=== PATIENT | female | born 1940 | race Caucasian/White ===

== ENCOUNTER 2024-08-23 14:44 | Inpatient (IN) | payer MEDICARE, OTHER ==
[~2024-08-23] VITALS: Ht 157.5 cm; Wt 59.9 kg
[2024-08-23] MEDS ORDERED: GABA-529 PO (16:03)
[2024-08-23] MEDS ORDERED: MIRT-92 PO (16:03)
[2024-08-23] MEDS ORDERED: LEVO125T95 PO (16:03)
[2024-08-23] MEDS ORDERED: PANT40TA54 PO (16:03)
[2024-08-23] MEDS ORDERED: LOSA-381 PO (16:03)
[2024-08-23 17:03] LABS: BASOPHILS % (AUTO) 0.1 % (0.0-2.0); EOSINOPHILS % (AUTO) 3.6 % (1.0-6.0); HEMATOCRIT 31.9 % (36-46); HEMOGLOBIN 10.3 g/dL (12.0-16.0); LYMPHOCYTES # (AUTO) 1.1 K/uL (1.0-4.8); LYMPHOCYTES % (AUTO) 21.1 % (22.0-44.0); MEAN CORPUSCULAR HEMOGLOBIN 27.7 pg (26.0-34.0); MEAN CORPUSCULAR HGB CONC 32.3 G/dL (31.0-37.0); MEAN CORPUSCULAR VOLUME 86 fL (80-100); MONOCYTES # (AUTO) 0.5 K/uL (0.1-1.0); MONOCYTES % (AUTO) 9.4 % (2.0-9.0); NEUTROPHILS # (AUTO) 3.5 K/uL (1.8-7.7); NEUTROPHILS % (AUTO) 65.8 % (40.0-70.0); PLATELET COUNT (AUTO) 352 K/uL (150-450); RED BLOOD CELL COUNT(AUTO) 3.72 MIL/uL (4.00-5.20); RED CELL DISTRIBUTION WIDTH 14.2 % (11.5-14.5); WHITE BLOOD COUNT (AUTO) 5.3 K/uL (4.5-11.0)
[2024-08-23 17:13] LABS: ANION GAP 8 mmol/L (8-16); CALCIUM, TOTAL 9.2 mg/dL (8.8-10.5); CARBON DIOXIDE 28 mmol/L (22-29); CHLORIDE 106 mmol/L (98-107); CREATININE 0.89 mg/dL (0.60-1.30); GLOMERULAR FILTR. RATE CALC > 60 mL/min (>60); GLUCOSE,RANDOM 105 mg/dL (70-110); POTASSIUM 4.6 mmol/L (3.5-5.1); SODIUM SERUM 142 mmol/L (136-145); UREA NITROGEN, BLOOD 27 mg/dL (7-18)
[2024-08-23 17:24] LABS: ALCOHOL, BLOOD (SERUM) < 3 mg/dL (0-10)
[2024-08-23] MEDS ORDERED: BACITRACIN 0.9 GM PACKET OINTMENT TP ONE (17:44)
[2024-08-23 17:52] LABS: APPEARANCE,URINE CLEAR (CLEAR); BILIRUBIN,URINE NEGATIVE (NEGATIVE); COLOR,URINE LIGHT YELLOW (YELLOW); GLUCOSE, URINE (UA) NEGATIVE (NEGATIVE); KETONES,URINE NEGATIVE (NEGATIVE); LEUKOCYTE ESTERASE ,URINE LARGE (NEGATIVE); NITRATE,URINE NEGATIVE (NEGATIVE); OCCULT BLOOD,URINE TRACE (NEGATIVE); PH,URINE 6.5 (5.0-8.0); PH,URINE DRUG SCREEN 6.5 (5.0-8.0); PROTEIN,URINE NEGATIVE (NEGATIVE); SPECIFIC GRAVITIY, URINE 1.018 (1.003-1.030); UROBILINOGEN,URINE <=1.0 mg/dL (<=1.0)
[2024-08-23] MEDS: BACITRACIN 0.9 GM PACKET OINTMENT TP ONE (17:54)
[2024-08-23 17:59] LABS: AMPHET/METH SCREEN,URINE NEGATIVE (NEGATIVE); BARBITURATE SCREEN, URINE NEGATIVE (NEGATIVE); BENZODIAZEPINES SCREEN,URINE NEGATIVE (NEGATIVE); CANNABINOID SCREEN,URINE NEGATIVE (NEGATIVE); COCAINE SCREEN,URINE NEGATIVE (NEGATIVE); METHADONE SCREEN, URINE NEGATIVE (NEGATIVE); OPIATE SCREEN,URINE NEGATIVE (NEGATIVE); PHENCYCLIDINE SCREEN,URINE NEGATIVE (NEGATIVE)
[2024-08-23 18:02] LABS: ALCOHOL, URINE DRUG SCREEN NEGATIVE (NEGATIVE)
[2024-08-23 18:03] LABS: BACTERIA,URINE Moderate /HPF (None Seen); RBC,URINE 0-2 /HPF (0-2); SQUAMOUS EPITHELIAL CELL,UR Rare /LPF (None Seen)
[2024-08-23 19:00] LABS: COVID AG,FIA SOURCE NASAL SWAB
[2024-08-23 19:19] LABS: SARS-COV2 (COVID) ANTIGEN,FIA Negative (Negative)
[2024-08-23] MEDS: LORazepam 2 MG/ML VIAL IM ONE ×2 (19:33→23:05)
[2024-08-23] MEDS: HALOPERIDOL LACTATE 5 MG/ML VIAL IM ONE (19:33)
[2024-08-23] MEDS: MIRTAZAPINE 30 MG TABLET PO ONE (21:29)
[2024-08-23] MEDS: ZIPRASIDONE MESYLATE 20 MG/VIAL IM ONE (21:29)
[2024-08-23] MEDS: DiphenhydrAMINE HCL 25 MG CAPSULE PO ONE (21:51)
[2024-08-23] MEDS: OLANZapine 10 MG TABLET PO ONE (21:51)
[2024-08-23] MEDS: LORazepam 1 MG TABLET PO ONE (21:51)
[2024-08-24] MEDS ORDERED: ZOLPIDEM TARTRATE 10 MG TABLET PO PRN (03:00)
[2024-08-24] MEDS ORDERED: CEPHALEXIN MONOHYDRATE 500 MG CAPSULE PO ONE (09:00)
[2024-08-24] MEDS: CefTRIAXone 1 GM/DEXTROSE 50 ML IV ONE (10:23)
[2024-08-24] MEDS: SODIUM CHLORIDE 0.9% 1,000 ML IV ONE ×2 (10:24→15:08)
[2024-08-24] MEDS ORDERED: BISACODYL 10 MG RECTAL RECTAL SUPPOSITORY PR PRN (14:45)
[2024-08-24] MEDS ORDERED: MAGNESIUM HYDROXIDE SUSPENSION 30 ML UDCUP PO PRN (14:45)
[2024-08-24] MEDS: HEPARIN SODIUM,PORCINE 5,000 UNITS/ML VIAL SQ SCH (15:34)
[2024-08-24 15:51] VITALS: BP 138/84; PULSE 89; RESP 17; TEMP 97.7; O2SAT 98
[2024-08-24] MEDS: ACETAMINOPHEN 325 MG TABLET PO PRN (16:03)
[2024-08-24] MEDS: LORazepam 2 MG TABLET PO PRN (16:03)
[2024-08-24] MEDS: HALOPERIDOL 5 MG TABLET PO PRN (17:35)
[2024-08-24] MEDS: ZOLPIDEM TARTRATE 5 MG TABLET PO PRN (20:07)
[2024-08-24] MEDS: MIRTAZAPINE 15 MG TABLET PO SCH (20:07)
[2024-08-24] MEDS: DOCUSATE SODIUM 100 MG CAPSULE PO SCH (20:08)
[2024-08-25 03:38] VITALS: BP 124/77; PULSE 111; RESP 18; TEMP 98.5; O2SAT 95
[2024-08-25 06:31] LABS: BASOPHILS % (AUTO) 0.1 % (0.0-2.0); EOSINOPHILS % (AUTO) 2.4 % (1.0-6.0); HEMATOCRIT 33.4 % (36-46); LYMPHOCYTES # (AUTO) 0.9 K/uL (1.0-4.8); MEAN CORPUSCULAR HEMOGLOBIN 28.2 pg (26.0-34.0); MEAN CORPUSCULAR HGB CONC 32.9 G/dL (31.0-37.0); MEAN CORPUSCULAR VOLUME 86 fL (80-100); MONOCYTES # (AUTO) 0.5 K/uL (0.1-1.0); NEUTROPHILS % (AUTO) 72.5 % (40.0-70.0); PLATELET COUNT (AUTO) 388 K/uL (150-450); RED BLOOD CELL COUNT(AUTO) 3.89 MIL/uL (4.00-5.20); RED CELL DISTRIBUTION WIDTH 14.2 % (11.5-14.5); WHITE BLOOD COUNT (AUTO) 5.5 K/uL (4.5-11.0)
[2024-08-25 06:44] LABS: CALCIUM, TOTAL 9.2 mg/dL (8.8-10.5); CREATININE 0.95 mg/dL (0.60-1.30)
[2024-08-25] MEDS: LEVOTHYROXINE SODIUM 125 MCG TABLET PO SCH (06:57)
[2024-08-25 07:52] VITALS: BP 111/66; PULSE 110; RESP 18; TEMP 97; O2SAT 95
[2024-08-25] MEDS: PANTOPRAZOLE SODIUM 40 MG DR TABLET PO SCH (08:31)
[2024-08-25] MEDS: LOSARTAN POTASSIUM 25 MG TABLET PO SCH (09:00)
[2024-08-25] MEDS ORDERED: PANTOPRAZOLE SODIUM 40 MG DR TABLET PO SCH (09:00)
[2024-08-25] MEDS: CefTRIAXone 1 GM/DEXTROSE 50 ML IV SCH (10:03)
[2024-08-25 16:07] VITALS: BP 138/71; PULSE 104; RESP 18; TEMP 98.7; O2SAT 96
[2024-08-25 19:29] VITALS: BP 119/67; PULSE 79; RESP 18; TEMP 98.6; O2SAT 95
[2024-08-26 01:05] VITALS: BP 125/69; PULSE 109; O2SAT 95
[2024-08-26 04:35] VITALS: BP 126/56; PULSE 91; RESP 18; TEMP 98.5; O2SAT 98
[2024-08-26 06:34] LABS: CALCIUM, TOTAL 8.8 mg/dL (8.8-10.5); CREATININE 0.94 mg/dL (0.60-1.30); POTASSIUM 3.7 mmol/L (3.5-5.1)
[2024-08-26 08:12] LABS: BASOPHILS % (AUTO) 0.2 % (0.0-2.0); EOSINOPHILS % (AUTO) 4.1 % (1.0-6.0); HEMATOCRIT 33.6 % (36-46); HEMOGLOBIN 10.9 g/dL (12.0-16.0); LYMPHOCYTES # (AUTO) 0.8 K/uL (1.0-4.8); MEAN CORPUSCULAR HEMOGLOBIN 27.9 pg (26.0-34.0); MEAN CORPUSCULAR HGB CONC 32.4 G/dL (31.0-37.0); MEAN CORPUSCULAR VOLUME 86 fL (80-100); MONOCYTES # (AUTO) 0.6 K/uL (0.1-1.0); MONOCYTES % (AUTO) 11.7 % (2.0-9.0); NEUTROPHILS # (AUTO) 3.6 K/uL (1.8-7.7); PLATELET COUNT (AUTO) 350 K/uL (150-450); WHITE BLOOD COUNT (AUTO) 5.2 K/uL (4.5-11.0)
[2024-08-26 08:21] VITALS: BP 119/67; PULSE 88; RESP 19; TEMP 98.3; O2SAT 96
[2024-08-26] MEDS: ETHYL ALCOHOL 62% ANTISEPTIC NASAL SANITIZER 0.6 ML AMPUL NASAL SCH (10:18)
[2024-08-26 14:44] VITALS: BP 113/70; PULSE 84; RESP 18; TEMP 98; O2SAT 96
[2024-08-26 20:11] VITALS: BP 119/65; PULSE 102; RESP 18; TEMP 97.6; O2SAT 95
[2024-08-26] MEDS: TAMSULOSIN HCL 0.4 MG CAPSULE PO SCH (20:45)
[2024-08-27 05:05] VITALS: BP 122/60; PULSE 61; RESP 19; TEMP 98.6; O2SAT 95
[2024-08-27 07:32] LABS: BASOPHILS % (AUTO) 0.1 % (0.0-2.0); EOSINOPHILS % (AUTO) 1.7 % (1.0-6.0); HEMATOCRIT 30.9 % (36-46); HEMOGLOBIN 10.3 g/dL (12.0-16.0); LYMPHOCYTES # (AUTO) 0.9 K/uL (1.0-4.8); LYMPHOCYTES % (AUTO) 16.9 % (22.0-44.0); MEAN CORPUSCULAR HEMOGLOBIN 28.2 pg (26.0-34.0); MEAN CORPUSCULAR HGB CONC 33.1 G/dL (31.0-37.0); MEAN CORPUSCULAR VOLUME 85 fL (80-100); MONOCYTES # (AUTO) 0.6 K/uL (0.1-1.0); MONOCYTES % (AUTO) 11.7 % (2.0-9.0); NEUTROPHILS # (AUTO) 3.6 K/uL (1.8-7.7); NEUTROPHILS % (AUTO) 69.6 % (40.0-70.0); PLATELET COUNT (AUTO) 329 K/uL (150-450); RED BLOOD CELL COUNT(AUTO) 3.64 MIL/uL (4.00-5.20); RED CELL DISTRIBUTION WIDTH 14.2 % (11.5-14.5); WHITE BLOOD COUNT (AUTO) 5.2 K/uL (4.5-11.0)
[2024-08-27 07:51] LABS: CALCIUM, TOTAL 8.8 mg/dL (8.8-10.5); CREATININE 1.09 mg/dL (0.60-1.30); POTASSIUM 3.9 mmol/L (3.5-5.1)
[2024-08-27 08:10] VITALS: BP 107/61; PULSE 99; RESP 18; TEMP 97.9; O2SAT 93
[2024-08-27 09:21] VITALS: O2SAT 97
[2024-08-27 16:00] VITALS: BP 109/67; PULSE 81; RESP 18; TEMP 98; O2SAT 95
[2024-08-27 19:22] VITALS: BP 126/82; PULSE 103; RESP 18; TEMP 98.2; O2SAT 95
[2024-08-28 04:40] VITALS: BP 151/73; PULSE 105; RESP 18; TEMP 97.8; O2SAT 95
[2024-08-28] MEDS: ONDANSETRON HCL 4 MG/2 ML VIAL IVP PRN (04:53)
[2024-08-28 08:03] VITALS: BP 149/85; PULSE 124; RESP 19; TEMP 97.8; O2SAT 96
[2024-08-28 08:37] VITALS: PULSE 105
[2024-08-28] MEDS ORDERED: CEPH-558 PO (09:41)
[2024-08-28] MEDS ORDERED: TAMS0.4C94 PO (09:42)
== END 2024-08-28 12:22 | DRG 689 ==
LOC: EMS 14:44 → EDBEDREQDT 08-24 09:49 → EDBEDREQTM 08-24 09:49 → EDBEDREQ 08-24 09:49 → EDBEDREQSVC 08-24 09:49 → 6S 08-24 13:00 → EDH 08-24 13:08 → 6S 08-24 13:12
PROVIDERS: ADMIT Internal Medicine; ATTEND Internal Medicine
DX: N39.0 Urinary tract infection, site not specified (principal); G93.41 Metabolic encephalopathy; F33.1 Major depressive disorder, recurrent, moderate; I11.0 Hypertensive heart disease with heart failure; I50.9 Heart failure, unspecified; F20.9 Schizophrenia, unspecified; E03.9 Hypothyroidism, unspecified; F41.9 Anxiety disorder, unspecified; K21.9 Gastro-esophageal reflux disease without esophagitis; Z20.822 Contact with and (suspected) exposure to COVID-19; F29 Unspecified psychosis not due to a substance or known physiological condition; Z86.73 Personal history of transient ischemic attack (TIA), and cerebral infarction without residual deficits; R79.89 Other specified abnormal findings of blood chemistry; Z79.899 Other long term (current) drug therapy
CPT/HCPCS: 80048; 80307; 81001; 85025; 87040; 87077; 87081; 87086; 87186; 87481; 99285; G0480; J0696; J1630; J1644; J2060; J2405